=== PATIENT | male | born 1975 | race Hispanic/Latino ===

== ENCOUNTER 2020-06-14 12:14 | Inpatient (IN) | payer BC ==
[~2020-06-14] VITALS: Ht 193 cm; Wt 117.9 kg
[~2020-06-14 12:14] MED LIST: HYDROCODONE PO
[2020-06-14] MEDS ORDERED: VENTOLIN HFA18 GM INH (12:20)
[2020-06-14] MEDS ORDERED: BROMFED DM COU118 ML (12:20)
[2020-06-14] MEDS ORDERED: DEXAMETHASONE4 MG PO (12:20)
[2020-06-14] MEDS ORDERED: AUGMENTIN 875-1 EACH PO (12:20)
[2020-06-14] MEDS ORDERED: DEXAMETHASONE SOD PHOS 10 MG/1 ML VIAL IV STA (12:20)
[2020-06-14] MEDS ORDERED: ALBUTEROL0.63 MG/3 NEB (12:20)
[2020-06-14] MEDS ORDERED: METFORMIN HCL500 MG PO (12:20)
[2020-06-14] MEDS ORDERED: TYLENOL # 31 EA PO (12:20)
[2020-06-14] MEDS ORDERED: DOXYCYCLINE HY100 MG PO (12:20)
[2020-06-14] MEDS ORDERED: AZITHROMYCIN 500MG/NS 250 ML 250 ML IV STA (12:20)
[2020-06-14] MEDS ORDERED: TESSALON PERLE100 MG PO (12:20)
[2020-06-14] MEDS ORDERED: ACETAMINOPHEN 325 MG TAB PO STA (12:29)
[2020-06-14] MEDS ORDERED: SODIUM CHLORIDE 0.9% 1000ML 1,000 ML IV SCH (12:30)
[2020-06-14] MEDS ORDERED: ASPIRIN 81 MG CHEW TAB PO ONE (12:30)
[2020-06-14 12:32] LABS: BASOPHILS % 0.2 % (0.0-1.0); HEMATOCRIT 46.5 % (38.2-49.6); HEMOGLOBIN 16.2 g/dL (14.0-18.0); LYMPHOCYTES # (AUTO) 0.4 (1.0-3.2); LYMPHOCYTES % 5.9 % (18.0-39.1); MEAN CORPUSCULAR HEMOGLOBIN 29.2 pg (28-32); MEAN CORPUSCULAR HGB CONC 34.8 g/dL (31-35); MEAN CORPUSCULAR VOLUME 83.9 fL (81-99); MONOCYTES # (AUTO) 0.2 (0.2-0.8); MONOCYTES % 3.6 % (4.4-11.3); NEUTROPHILS # (AUTO) 5.5 (2.1-6.9); NEUTROPHILS % 89.6 % (38.7-80.0); PLATELET COUNT 161 x10e3/uL (140-360); RED BLOOD COUNT 5.54 x10e6/uL (4.3-5.7); RED CELL DISTRIBUTION WIDTH 12.1 % (11.7-14.4)
[2020-06-14 12:55] LABS: ALANINE AMINOTRANSFERASE 32 IU/L (0-55); ALBUMIN 3.5 g/dL (3.5-5.0); ALBUMIN/GLOBULIN RATIO 0.9 (0.8-2.0); ALKALINE PHOSPHATASE 31 IU/L (40-150); ANION GAP 15.7 mmol/L (8-16); BLOOD UREA NITROGEN 15 mg/dL (7-26); BUN/CREATININE RATIO 16 (6-25); CALCIUM 8.3 mg/dL (8.4-10.2); CARBON DIOXIDE 21 mmol/L (22-29); CHLORIDE 104 mmol/L (98-107); CREATINE KINASE 93 IU/L (30-200); CREATININE, SERUM 0.93 mg/dL (0.72-1.25); EST GLOMERULAR FILTRATION RATE > 60 ML/MIN (60-); GLUCOSE 176 mg/dL (74-118); POTASSIUM 3.7 mmol/L (3.5-5.1); SODIUM 137 mmol/L (136-145)
[2020-06-14 15:06] VITALS: BP 117/78
[2020-06-14] MEDS ORDERED: ACETAMINOPHEN 325 MG TAB PO PRN (16:00)
[2020-06-14] MEDS ORDERED: LACTATED RINGER'S 1,000 ML INJ ONE (16:00)
[2020-06-14] MEDS ORDERED: ONDANSETRON HCL INJ 2MG/ML 2ML 2 MG/ML VIAL IV PRN (16:00)
[2020-06-14 16:08] VITALS: BP 117/78
[2020-06-14] MEDS ORDERED: ENOXAPARIN INJ 80 MG/0.8 ML SYR SC SCH (17:00)
[2020-06-14] MEDS: CEFTRIAXONE SOD 2 GM 100 ML IV SCH (17:19)
[2020-06-14] MEDS: ASCORBIC ACID 500 MG TAB PO SCH (17:19)
[2020-06-14] MEDS: ENOXAPARIN SOD INJ 40 MG/0.4 ML SYR SC SCH (17:19)
[2020-06-14] MEDS ORDERED: DEXTROSE 50% SYRINGE 50 ML IV PRN (18:30)
[2020-06-14 20:00] VITALS: BP 128/98
[2020-06-14 20:28] VITALS: BP 128/98
[2020-06-14 20:47] LABS: CREATINE KINASE MB 0.4 ng/mL (0-5.0)
[2020-06-14] MEDS ORDERED: ZOLPIDEM TARTRATE 5 MG TAB PO PRN (21:00)
[2020-06-14] MEDS: INSULIN REGULAR, HUMAN 100 UNIT/1 ML 3ML VIAL SQ SCH (21:11)
[2020-06-15] VITALS (8 sets, daily range): BP systolic 115–127; BP diastolic 85–91
[2020-06-15 06:35] LABS: LYMPHOCYTES # (AUTO) 0.4 (1.0-3.2); LYMPHOCYTES % 6.2 % (18.0-39.1); MEAN CORPUSCULAR HEMOGLOBIN 29.4 pg (28-32); MEAN CORPUSCULAR HGB CONC 34.9 g/dL (31-35); MEAN CORPUSCULAR VOLUME 84.3 fL (81-99); MONOCYTES # (AUTO) 0.3 (0.2-0.8); MONOCYTES % 4.7 % (4.4-11.3); NEUTROPHILS # (AUTO) 5.5 (2.1-6.9); NEUTROPHILS % 88.8 % (38.7-80.0); PLATELET COUNT 159 x10e3/uL (140-360); RED CELL DISTRIBUTION WIDTH 12.3 % (11.7-14.4)
[2020-06-15 07:14] LABS: CREATINE KINASE 54 IU/L (30-200)
[2020-06-15 07:35] LABS: ALANINE AMINOTRANSFERASE 26 IU/L (0-55); ALBUMIN 2.9 g/dL (3.5-5.0); ALBUMIN/GLOBULIN RATIO 0.8 (0.8-2.0); ALKALINE PHOSPHATASE 26 IU/L (40-150); BLOOD UREA NITROGEN 14 mg/dL (7-26); BUN/CREATININE RATIO 17 (6-25); CALCIUM 8.2 mg/dL (8.4-10.2); CARBON DIOXIDE 25 mmol/L (22-29); CHLORIDE 106 mmol/L (98-107); CREATININE, SERUM 0.83 mg/dL (0.72-1.25); EST GLOMERULAR FILTRATION RATE > 60 ML/MIN (60-); GLUCOSE 162 mg/dL (74-118); SODIUM 140 mmol/L (136-145)
[2020-06-15 08:08] LABS: BAND NEUTROPHILS % (MANUAL) 1 %; LYMPHOCYTES % (MANUAL) 4 % (19-48); MONOCYTES % (MANUAL) 7 % (3.4-9.0); NEUTROPHILS % (MANUAL) 87 % (40-74); PLATELET ESTIMATE ADEQUATE; PLATELET MORPHOLOGY COMMENT NORMAL; RBC MORPHOLOGY COMMENT NORMAL
[2020-06-15] MEDS: INSULIN REGULAR, HUMAN 100 UNIT/1 ML 3ML VIAL SQ SCH ×4 (09:00→21:04)
[2020-06-15] MEDS: ASCORBIC ACID 500 MG TAB PO SCH ×2 (09:06→17:37)
[2020-06-15] MEDS: AZITHROMYCIN 500MG/NS 250 ML 250 ML IV SCH (09:06)
[2020-06-15] MEDS: DEXAMETHASONE SOD PHOS 10 MG/1 ML VIAL IV SCH (09:06)
[2020-06-15] MEDS: ZINC SULFATE 220 MG CAP PO SCH (09:07)
[2020-06-15] MEDS: ENOXAPARIN SOD INJ 40 MG/0.4 ML SYR SC SCH ×2 (09:07→21:04)
[2020-06-15] MEDS: CEFTRIAXONE SOD 2 GM 100 ML IV SCH (17:37)
[2020-06-16] VITALS (8 sets, daily range): BP systolic 104–137; BP diastolic 56–89
[2020-06-16 07:54] LABS: BASOPHILS % 0.2 % (0.0-1.0); HEMATOCRIT 44.1 % (38.2-49.6); HEMOGLOBIN 15.1 g/dL (14.0-18.0); LYMPHOCYTES # (AUTO) 0.6 (1.0-3.2); LYMPHOCYTES % 15.2 % (18.0-39.1); MEAN CORPUSCULAR HEMOGLOBIN 29.7 pg (28-32); MEAN CORPUSCULAR HGB CONC 34.2 g/dL (31-35); MEAN CORPUSCULAR VOLUME 86.6 fL (81-99); MONOCYTES # (AUTO) 0.3 (0.2-0.8); MONOCYTES % 8.1 % (4.4-11.3); NEUTROPHILS # (AUTO) 3.2 (2.1-6.9); NEUTROPHILS % 75.8 % (38.7-80.0); PLATELET COUNT 188 x10e3/uL (140-360); RED BLOOD COUNT 5.09 x10e6/uL (4.3-5.7); RED CELL DISTRIBUTION WIDTH 12.1 % (11.7-14.4)
[2020-06-16 08:12] LABS: ALANINE AMINOTRANSFERASE 24 IU/L (0-55); ALBUMIN 2.9 g/dL (3.5-5.0); ALBUMIN/GLOBULIN RATIO 0.8 (0.8-2.0); ALKALINE PHOSPHATASE 28 IU/L (40-150); ANION GAP 12.1 mmol/L (8-16); BLOOD UREA NITROGEN 17 mg/dL (7-26); BUN/CREATININE RATIO 19 (6-25); CALCIUM 8.3 mg/dL (8.4-10.2); CARBON DIOXIDE 27 mmol/L (22-29); CHLORIDE 108 mmol/L (98-107); CREATININE, SERUM 0.91 mg/dL (0.72-1.25); EST GLOMERULAR FILTRATION RATE > 60 ML/MIN (60-); GLUCOSE 125 mg/dL (74-118); POTASSIUM 4.1 mmol/L (3.5-5.1); SODIUM 143 mmol/L (136-145)
[2020-06-16] MEDS: ASCORBIC ACID 500 MG TAB PO SCH ×2 (08:44→17:12)
[2020-06-16] MEDS: AZITHROMYCIN 500MG/NS 250 ML 250 ML IV SCH (08:44)
[2020-06-16] MEDS: ZINC SULFATE 220 MG CAP PO SCH (08:44)
[2020-06-16] MEDS: DEXAMETHASONE SOD PHOS 10 MG/1 ML VIAL IV SCH (08:44)
[2020-06-16] MEDS: ENOXAPARIN SOD INJ 40 MG/0.4 ML SYR SC SCH ×2 (08:44→20:15)
[2020-06-16] MEDS: INSULIN REGULAR, HUMAN 100 UNIT/1 ML 3ML VIAL SQ SCH ×4 (08:47→20:15)
[2020-06-16] MEDS: CEFTRIAXONE SOD 2 GM 100 ML IV SCH (17:11)
[2020-06-17] VITALS (8 sets, daily range): BP systolic 118–130; BP diastolic 81–89
[2020-06-17] MEDS: INSULIN REGULAR, HUMAN 100 UNIT/1 ML 3ML VIAL SQ SCH ×4 (07:30→21:00)
[2020-06-17 08:51] LABS: BASOPHILS % 0.2 % (0.0-1.0); EOSINOPHILS % 0.2 % (0.0-6.0); HEMATOCRIT 46.9 % (38.2-49.6); HEMOGLOBIN 15.7 g/dL (14.0-18.0); LYMPHOCYTES # (AUTO) 0.8 (1.0-3.2); LYMPHOCYTES % 17.1 % (18.0-39.1); MEAN CORPUSCULAR HEMOGLOBIN 29.2 pg (28-32); MEAN CORPUSCULAR HGB CONC 33.5 g/dL (31-35); MEAN CORPUSCULAR VOLUME 87.2 fL (81-99); MONOCYTES # (AUTO) 0.4 (0.2-0.8); MONOCYTES % 7.5 % (4.4-11.3); NEUTROPHILS # (AUTO) 3.6 (2.1-6.9); NEUTROPHILS % 73.4 % (38.7-80.0); PLATELET COUNT 232 x10e3/uL (140-360); RED BLOOD COUNT 5.38 x10e6/uL (4.3-5.7); RED CELL DISTRIBUTION WIDTH 12.4 % (11.7-14.4)
[2020-06-17 08:58] LABS: ALANINE AMINOTRANSFERASE 33 IU/L (0-55); ALBUMIN/GLOBULIN RATIO 0.8 (0.8-2.0); ALKALINE PHOSPHATASE 27 IU/L (40-150); ANION GAP 13.8 mmol/L (8-16); BLOOD UREA NITROGEN 19 mg/dL (7-26); BUN/CREATININE RATIO 20 (6-25); CALCIUM 8.5 mg/dL (8.4-10.2); CARBON DIOXIDE 25 mmol/L (22-29); CHLORIDE 107 mmol/L (98-107); CREATININE, SERUM 0.93 mg/dL (0.72-1.25); EST GLOMERULAR FILTRATION RATE > 60 ML/MIN (60-); GLUCOSE 110 mg/dL (74-118); POTASSIUM 3.8 mmol/L (3.5-5.1); SODIUM 142 mmol/L (136-145)
[2020-06-17] MEDS: ZINC SULFATE 220 MG CAP PO SCH (09:15)
[2020-06-17] MEDS: AZITHROMYCIN 500MG/NS 250 ML 250 ML IV SCH (09:15)
[2020-06-17] MEDS: ENOXAPARIN SOD INJ 40 MG/0.4 ML SYR SC SCH ×2 (09:15→21:00)
[2020-06-17] MEDS: DEXAMETHASONE SOD PHOS 10 MG/1 ML VIAL IV SCH (09:15)
[2020-06-17] MEDS: ASCORBIC ACID 500 MG TAB PO SCH ×2 (09:15→17:49)
[2020-06-17 10:51] LABS: LYMPHOCYTES % (MANUAL) 18 % (19-48); MONOCYTES % (MANUAL) 2 % (3.4-9.0); NEUTROPHILS % (MANUAL) 73 % (40-74)
[2020-06-17 10:52] LABS: PLATELET ESTIMATE ADEQUATE; PLATELET MORPHOLOGY COMMENT NORMAL; RBC MORPHOLOGY COMMENT NORMAL
[2020-06-17] MEDS ORDERED: SODIUM CHLORIDE 0.9% 250ML 250 ML ONE (14:47)
[2020-06-17] MEDS: CEFTRIAXONE SOD 2 GM 100 ML IV SCH (16:53)
[2020-06-18] VITALS (9 sets, daily range): BP systolic 121–132; BP diastolic 82–92
[2020-06-18] MEDS: INSULIN REGULAR, HUMAN 100 UNIT/1 ML 3ML VIAL SQ SCH ×4 (07:30→21:15)
[2020-06-18] MEDS: DEXAMETHASONE SOD PHOS 10 MG/1 ML VIAL IV SCH (08:00)
[2020-06-18] MEDS: AZITHROMYCIN 500MG/NS 250 ML 250 ML IV SCH (08:00)
[2020-06-18] MEDS: ENOXAPARIN SOD INJ 40 MG/0.4 ML SYR SC SCH ×2 (09:00→21:20)
[2020-06-18] MEDS: ASCORBIC ACID 500 MG TAB PO SCH ×2 (09:00→16:53)
[2020-06-18] MEDS: ZINC SULFATE 220 MG CAP PO SCH (09:00)
[2020-06-18 09:51] LABS: BASOPHILS % 0.2 % (0.0-1.0); EOSINOPHILS % 0.6 % (0.0-6.0); HEMATOCRIT 46.4 % (38.2-49.6); LYMPHOCYTES # (AUTO) 0.9 (1.0-3.2); LYMPHOCYTES % 17.5 % (18.0-39.1); MEAN CORPUSCULAR HGB CONC 34.5 g/dL (31-35); MEAN CORPUSCULAR VOLUME 84.2 fL (81-99); MONOCYTES # (AUTO) 0.4 (0.2-0.8); MONOCYTES % 8.1 % (4.4-11.3); NEUTROPHILS # (AUTO) 3.7 (2.1-6.9); NEUTROPHILS % 71.9 % (38.7-80.0); PLATELET COUNT 238 x10e3/uL (140-360); RED BLOOD COUNT 5.51 x10e6/uL (4.3-5.7)
[2020-06-18 10:10] LABS: ALANINE AMINOTRANSFERASE 58 IU/L (0-55); ALBUMIN 3.1 g/dL (3.5-5.0); ALBUMIN/GLOBULIN RATIO 0.8 (0.8-2.0); ALKALINE PHOSPHATASE 25 IU/L (40-150); ANION GAP 12.8 mmol/L (8-16); BLOOD UREA NITROGEN 19 mg/dL (7-26); BUN/CREATININE RATIO 25 (6-25); CALCIUM 8.4 mg/dL (8.4-10.2); CARBON DIOXIDE 24 mmol/L (22-29); CHLORIDE 108 mmol/L (98-107); CREATININE, SERUM 0.75 mg/dL (0.72-1.25); EST GLOMERULAR FILTRATION RATE > 60 ML/MIN (60-); GLUCOSE 124 mg/dL (74-118); POTASSIUM 3.8 mmol/L (3.5-5.1); SODIUM 141 mmol/L (136-145)
[2020-06-18] MEDS ORDERED: SODIUM CHLORIDE 0.9% 250ML 250 ML ONE (16:50)
[2020-06-18] MEDS: CEFTRIAXONE SOD 2 GM 100 ML IV SCH (16:53)
[2020-06-19 04:30] VITALS: BP 125/96
[2020-06-19] MEDS: INSULIN REGULAR, HUMAN 100 UNIT/1 ML 3ML VIAL SQ SCH (07:30)
[2020-06-19 07:34] VITALS: BP 128/90
[2020-06-19 07:51] VITALS: BP 128/90
[2020-06-19] MEDS: ZINC SULFATE 220 MG CAP PO SCH (09:39)
[2020-06-19] MEDS: AZITHROMYCIN 500MG/NS 250 ML 250 ML IV SCH (09:39)
[2020-06-19] MEDS: ASCORBIC ACID 500 MG TAB PO SCH (09:39)
[2020-06-19] MEDS: ENOXAPARIN SOD INJ 40 MG/0.4 ML SYR SC SCH (09:39)
[2020-06-19] MEDS: DEXAMETHASONE SOD PHOS 10 MG/1 ML VIAL IV SCH (09:39)
[2020-06-19 09:52] LABS: BASOPHILS % 0.4 % (0.0-1.0); EOSINOPHILS % 0.7 % (0.0-6.0); HEMOGLOBIN 15.7 g/dL (14.0-18.0); LYMPHOCYTES # (AUTO) 0.9 (1.0-3.2); LYMPHOCYTES % 15.9 % (18.0-39.1); MEAN CORPUSCULAR HEMOGLOBIN 28.7 pg (28-32); MEAN CORPUSCULAR HGB CONC 34.1 g/dL (31-35); MEAN CORPUSCULAR VOLUME 84.1 fL (81-99); MONOCYTES # (AUTO) 0.4 (0.2-0.8); NEUTROPHILS # (AUTO) 3.9 (2.1-6.9); NEUTROPHILS % 70.8 % (38.7-80.0); PLATELET COUNT 260 x10e3/uL (140-360); RED BLOOD COUNT 5.47 x10e6/uL (4.3-5.7); RED CELL DISTRIBUTION WIDTH 11.9 % (11.7-14.4)
[2020-06-19 10:27] LABS: ALANINE AMINOTRANSFERASE 73 IU/L (0-55); ALBUMIN 3.2 g/dL (3.5-5.0); ALBUMIN/GLOBULIN RATIO 0.9 (0.8-2.0); ALKALINE PHOSPHATASE 28 IU/L (40-150); BLOOD UREA NITROGEN 17 mg/dL (7-26); BUN/CREATININE RATIO 21 (6-25); CALCIUM 8.6 mg/dL (8.4-10.2); CARBON DIOXIDE 26 mmol/L (22-29); CHLORIDE 104 mmol/L (98-107); CREATININE, SERUM 0.82 mg/dL (0.72-1.25); EST GLOMERULAR FILTRATION RATE > 60 ML/MIN (60-); GLUCOSE 177 mg/dL (74-118); SODIUM 138 mmol/L (136-145)
[2020-06-19] MEDS ORDERED: DEXAMETHASONE4 MG PO (10:50)
[2020-06-19] MEDS ORDERED: ELIQUIS2.5 MG PO (10:50)
== END 2020-06-19 12:07 | disposition home or self-care (01) | DRG 871 ==
LOC: ER 12:20 → ERHOLD 12:54 → MED/SURG3 15:10 → OBSVTOIN 06-15 12:30 → IMCU 06-18 12:08
PROC: 3E0333Z Introduction of Anti-inflammatory into Peripheral Vein, Percutaneous Approach (ICD-10-PCS; principal; 2020-06-15)
DX: A41.89 Other specified sepsis (principal); U07.1 COVID-19; J12.82 Pneumonia due to coronavirus disease 2019; J96.91 Respiratory failure, unspecified with hypoxia; J15.9 Unspecified bacterial pneumonia; E87.2 Acidosis; R65.20 Severe sepsis without septic shock; E11.9 Type 2 diabetes mellitus without complications; E87.6 Hypokalemia; Z86.718 Personal history of other venous thrombosis and embolism; Z79.84 Long term (current) use of oral hypoglycemic drugs
CPT/HCPCS: 36415; 71045; 71260; 80048; 80053; 82550; 82553; 82948; 83880; 84484; 85025; 93005; 93970; 96372; 99284; G0378; J0456; J0696; J1100; J1650; J1817; J7030; J7050; J7121; U0002

== ENCOUNTER 2021-07-27 16:15 | Observation (INO) | payer BC ==
[~2021-07-27] VITALS: Ht 185.4 cm; Wt 121.6 kg
[~2021-07-27 16:15] MED LIST changes: +ALBUTEROL0.63 MG/3 NEB; +AUGMENTIN 875-1 EACH PO; +BROMFED DM COU118 ML; +DEXAMETHASONE4 MG PO; +DOXYCYCLINE HY100 MG PO; +ELIQUIS2.5 MG PO; +METFORMIN HCL500 MG PO; +TESSALON PERLE100 MG PO; +TYLENOL # 31 EA PO; +VENTOLIN HFA18 GM INH
[2021-07-27] MEDS ORDERED: TRAMADOL HCL 50 MG TAB PO NR (17:15)
[2021-07-27] MEDS ORDERED: ONDANSETRON HCL INJ 2MG/ML 2ML 2 MG/ML VIAL IV PRN (18:00)
[2021-07-27] MEDS ORDERED: ENOXAPARIN SODIUM INJ 100 MG/ML SYR SC STA (18:05)
[2021-07-27] MEDS: SODIUM CHLORIDE 0.9% 1000ML 1,000 ML IV SCH (18:35)
[2021-07-27 18:44] LABS: CREATINE KINASE 116 IU/L (30-200)
[2021-07-27 20:00] VITALS: BP 153/111
[2021-07-27 20:24] LABS: BASOPHILS % 0.4 % (0.0-1.0); EOSINOPHILS # (AUTO) 0.3 (0.0-0.4); EOSINOPHILS % 6.3 % (0.0-6.0); HEMOGLOBIN 15.9 g/dL (14.0-18.0); LYMPHOCYTES # (AUTO) 1.2 (1.0-3.2); LYMPHOCYTES % 25.9 % (18.0-39.1); MEAN CORPUSCULAR HEMOGLOBIN 29.3 pg (28-32); MEAN CORPUSCULAR HGB CONC 34.6 g/dL (31-35); MEAN CORPUSCULAR VOLUME 84.7 fL (81-99); MONOCYTES # (AUTO) 0.4 (0.2-0.8); MONOCYTES % 8.6 % (4.4-11.3); NEUTROPHILS # (AUTO) 2.8 (2.1-6.9); NEUTROPHILS % 58.6 % (38.7-80.0); PLATELET COUNT 152 x10e3/uL (140-360); RED BLOOD COUNT 5.43 x10e6/uL (4.3-5.7); RED CELL DISTRIBUTION WIDTH 13.5 % (11.7-14.4)
[2021-07-27 20:36] LABS: ALBUMIN 4.1 g/dL (3.5-5.0); ALBUMIN/GLOBULIN RATIO 1.1 (0.8-2.0); ANION GAP 13.8 mmol/L (8-16); CALCIUM 10.1 mg/dL (8.4-10.2); CREATININE, SERUM 1.19 mg/dL (0.72-1.25); POTASSIUM 3.8 mmol/L (3.5-5.1)
[2021-07-27 22:45] VITALS: BP 153/111
[2021-07-27] MEDS: Morphine 4mg Syringe 4 MG/ML INJ IV PRN (23:12)
[2021-07-28 00:02] VITALS: BP 160/106
[2021-07-28] MEDS ORDERED: LISINOPRIL 10 MG TAB PO ONE (00:15)
[2021-07-28 00:55] VITALS: BP 136/92
[2021-07-28] MEDS: SODIUM CHLORIDE 0.9% 1000ML 1,000 ML IV SCH ×3 (02:30→15:42)
[2021-07-28 03:23] LABS: CREATINE KINASE 84 IU/L (30-200)
[2021-07-28 04:00] VITALS: BP 107/80
[2021-07-28] MEDS: Morphine 4mg Syringe 4 MG/ML INJ IV PRN (05:20)
[2021-07-28 08:41] VITALS: BP 129/95
[2021-07-28] MEDS: RIVAROXABAN 15 MG TABLET PO SCH ×2 (08:55→16:01)
[2021-07-28] MEDS ORDERED: LISINOPRIL 10 MG TAB PO SCH (09:00)
[2021-07-28 09:14] VITALS: BP 129/95
[2021-07-28 10:13] LABS: BASOPHILS % 0.4 % (0.0-1.0); EOSINOPHILS # (AUTO) 0.2 (0.0-0.4); EOSINOPHILS % 4.7 % (0.0-6.0); HEMATOCRIT 42.8 % (38.2-49.6); HEMOGLOBIN 14.9 g/dL (14.0-18.0); LYMPHOCYTES % 20.8 % (18.0-39.1); MEAN CORPUSCULAR HEMOGLOBIN 29.7 pg (28-32); MEAN CORPUSCULAR HGB CONC 34.8 g/dL (31-35); MEAN CORPUSCULAR VOLUME 85.3 fL (81-99); MONOCYTES # (AUTO) 0.4 (0.2-0.8); MONOCYTES % 8.2 % (4.4-11.3); NEUTROPHILS # (AUTO) 3.1 (2.1-6.9); NEUTROPHILS % 65.7 % (38.7-80.0); PLATELET COUNT 152 x10e3/uL (140-360); RED BLOOD COUNT 5.02 x10e6/uL (4.3-5.7); RED CELL DISTRIBUTION WIDTH 13.7 % (11.7-14.4)
[2021-07-28 10:30] LABS: ALBUMIN 3.5 g/dL (3.5-5.0); ALBUMIN/GLOBULIN RATIO 1.1 (0.8-2.0); ANION GAP 12.2 mmol/L (8-16); CALCIUM 8.7 mg/dL (8.4-10.2); CREATININE, SERUM 1.07 mg/dL (0.72-1.25); POTASSIUM 4.2 mmol/L (3.5-5.1)
[2021-07-28 10:59] LABS: CREATINE KINASE 94 IU/L (30-200)
[2021-07-28 12:49] VITALS: BP 131/92
[2021-07-28] MEDS ORDERED: XARELTO20 MG PO (14:36)
[2021-07-28] MEDS ORDERED: XARELTO10 MG PO (14:36)
[2021-07-28] MEDS ORDERED: LISINOPRIL10 MG PO (14:36)
[2021-07-28] MEDS ORDERED: TRADJENTA5 MG PO (14:37)
== END 2021-07-28 15:58 | disposition home or self-care (01) ==
LOC: ER 16:52 → ERHOLD 17:52 → MED/SURG 21:25
DX: I82.442 Acute embolism and thrombosis of left tibial vein (principal); Z20.822 Contact with and (suspected) exposure to COVID-19; E11.9 Type 2 diabetes mellitus without complications; E66.9 Obesity, unspecified; Z68.35 Body mass index [BMI] 35.0-35.9, adult; I10 Essential (primary) hypertension
CPT/HCPCS: 36415 ×2; 80053 ×2; 82550 ×2; 82553 ×2; 82948; 83036; 84484 ×2; 85025 ×2; 93306; 93971; 94799 ×2; 99284; G0378 ×2; J1650; J2270 ×2; J7030 ×2; U0002

== ENCOUNTER 2023-10-19 21:54 | Emergency (ER) | payer BC ==
[~2023-10-19] VITALS: Ht 188 cm; Wt 117.9 kg
[~2023-10-19 21:54] MED LIST changes: +AZITHROMYCIN250 MG PO; +LISINOPRIL10 MG PO; +TRADJENTA5 MG PO; +XARELTO10 MG PO; +XARELTO20 MG PO
[2023-10-19 22:03] VITALS: PULSE 79; RESP 20; TEMP 98.6; O2SAT 98
== END 2023-10-19 22:43 | disposition home or self-care (01) ==
LOC: ER 22:01
DX: M79.662 Pain in left lower leg (principal); Z86.718 Personal history of other venous thrombosis and embolism; I10 Essential (primary) hypertension; E11.9 Type 2 diabetes mellitus without complications; Z79.84 Long term (current) use of oral hypoglycemic drugs; Z79.899 Other long term (current) drug therapy
CPT/HCPCS: 93971; 99283

== ENCOUNTER 2024-05-27 20:51 | Emergency (ER) | payer BC ==
[~2024-05-27] VITALS: Ht 188 cm; Wt 117.9 kg
[2024-05-27 21:00] VITALS: TEMP 98.1
[2024-05-27] MEDS ORDERED: RIVAROXABAN 15 MG TABLET PO ONE (23:00)
[2024-05-27] MEDS ORDERED: RIVAROXABAN 20 MG TABLET ONE (23:08)
[2024-05-27 23:11] VITALS: PULSE 90; RESP 16
[2024-05-27] MEDS ORDERED: XARELTO10 MG PO (23:14)
[2024-05-27] MEDS: RIVAROXABAN 20 MG TABLET PO ONE (23:14)
[2024-05-27 23:25] VITALS: BP 137/92; PULSE 91; RESP 21; TEMP 98.5; O2SAT 98
== END 2024-05-27 23:30 | disposition home or self-care (01) ==
LOC: ER 21:00
DX: M79.662 Pain in left lower leg (principal); I82.412 Acute embolism and thrombosis of left femoral vein; I82.432 Acute embolism and thrombosis of left popliteal vein; I10 Essential (primary) hypertension; E11.9 Type 2 diabetes mellitus without complications; Z98.84 Bariatric surgery status
CPT/HCPCS: 93971; 99283